=== PATIENT | male | born 1950 | race Asian ===

== ENCOUNTER 2018-11-19 14:33 | Emergency (ER) | payer OTHER, MEDICAID ==
[~2018-11-19] VITALS: Ht 167.6 cm; Wt 70.0 kg
[~2018-11-19 14:33] MED LIST: ALLO300T2 PO; ASPI-1159 PO; ATOR-2 PO; CLOP75TA15 PO; DOCU-138 PO; FLUD0.1T PO; PRED5TAB48 PO; RANI150T7 PO; SERT25TA74 PO; TAMS0.4C31 PO
[2018-11-19] MEDS ORDERED: NITROGLYCERIN 0.4MG TABLET SL SL PRN (15:00)
[2018-11-19] MEDS ORDERED: ASPIRIN 81MG TABLET PO ONE (15:00)
[2018-11-19 15:48] LABS: CHLORIDE 104 mEq/L (98-107)
[2018-11-19 15:51] LABS: HEMATOCRIT. 41.5 % (42.0-52.0); HEMOGLOBIN. 13.5 g/dL (14.0-18.0); MEAN CORPUSCULAR HEMOGLOBIN 30.1 pg (28.0-32.0); MEAN CORPUSCULAR VOLUME 92.5 fL (80.0-94.0); MEAN PLATELET VOLUME 8.2 fl (7.4-10.4); PLATELET 165 x1000/uL (130-400); RED BLOOD CELL COUNT 4.48 mill/uL (4.7-6.1)
[2018-11-19 16:17] LABS: PLATELET ESTIMATE NORMAL
[2018-11-19] MEDS ORDERED: AZITHROMYCIN 500 MG in DEXT 5% WATER 250 ML IV ONE (17:00)
[2018-11-19] MEDS ORDERED: CEFTRIAXONE 1 G PREMIX 50 ML IV ONE (17:00)
[2018-11-19 21:40] VITALS: BP 114/50
== END 2018-11-19 22:14 | disposition short-term general hospital (02) ==
LOC: ER 14:33 → CANBEDREQ 23:28
DX: R07.89 Other chest pain (principal); I20.0 Unstable angina; I21.4 Non-ST elevation (NSTEMI) myocardial infarction; J18.9 Pneumonia, unspecified organism; Z74.01 Bed confinement status; E11.9 Type 2 diabetes mellitus without complications; Z79.82 Long term (current) use of aspirin; Z86.73 Personal history of transient ischemic attack (TIA), and cerebral infarction without residual deficits
CPT/HCPCS: 36415; 71045; 80053; 82962; 83880; 84484; 85025; 87040; 87077; 87186; 93005; 96365; 96366; 96367; 99285; J0456; J0696; J7040; J7060